=== PATIENT | female | born 1985 | race Caucasian/White ===

== ENCOUNTER 2019-12-14 08:34 | Emergency (ER) | payer MEDICAID ==
[~2019-12-14] VITALS: Ht 160 cm; Wt 68.0 kg
--- NOTE | 2019-12-14 08:38 | NUR ---
Patient ambulated to bed 11. RN evaluating patient at bedside.
[2019-12-14 08:41] VITALS: BP 119/70
--- NOTE | 2019-12-14 08:46 | NUR ---
34/F c/o sore throat x 1 day. reports no meds taken at home. VSS. AAOx 4. NKA. PmHx: denies Rx: denies
--- NOTE | 2019-12-14 08:54 | NUR ---
Dr. Lindquist is evaluating the patient at bedside.
== END 2019-12-14 09:08 | disposition home or self-care (01) ==
LOC: MED 08:34
DX: R05 Cough (principal)
CPT/HCPCS: 99282

== ENCOUNTER 2020-06-19 09:47 | Emergency (ER) | payer MEDICAID, OTHER ==
[~2020-06-19] VITALS: Ht 162.6 cm; Wt 73.5 kg
[2020-06-19 09:50] VITALS: BP 144/48
--- NOTE | 2020-06-19 09:55 | NUR ---
PT AMBULATED TO ER BED 04
--- NOTE | 2020-06-19 10:05 | NUR ---
35 YEAR OLD MALE COMPLAINS OF LEFT SHOULDER BLADE PAIN X 3 DAYS. PT DENIES ANY TRAUMA OR LIFTING ANYTHING HEAVY. PT AOX4, BREATHING EVEN AND UNLABORED, SKIN WARM AND DRY. BED IN LOWEST POSITION, LOCKED, BED RAIL UPX1. PMH - DENIES ALLERGIES - NKA
--- NOTE | 2020-06-19 10:35 | NUR ---
XRAY AT BEDSIDE
[2020-06-19] MEDS ORDERED: KETOROLAC 60 MG/2 ML VIAL IM ONE (11:05)
--- NOTE | 2020-06-19 11:30 | NUR ---
Patient discharged with v/s stable. Written and verbal after care instructions given and explained. Patient alert, oriented and verbalized understanding of instructions. Ambulatory with steady gait. All questions addressed prior to discharge. ID band removed. Patient advised to follow up with PMD. Rx of tramadol, motrin, and robaxin given. Patient educated on indication of medication including possible reaction and side effects. Opportunity to ask questions provided and answered.
[2020-06-19 11:34] VITALS: BP 104/67
== END 2020-06-19 11:34 | disposition home or self-care (01) ==
LOC: MED 09:47
DX: S46.812A Strain of other muscles, fascia and tendons at shoulder and upper arm level, left arm, initial encounter (principal); M54.6 Pain in thoracic spine; X58.XXXA Exposure to other specified factors, initial encounter; Y93.89 Activity, other specified; Y92.89 Other specified places as the place of occurrence of the external cause; Y99.8 Other external cause status
CPT/HCPCS: 71045; 81025; 93005; 96372; 99283; J1885; Q0092

== ENCOUNTER 2024-01-06 19:52 | Emergency (ER) | payer OTHER ==
[~2024-01-06] VITALS: Ht 152.4 cm; Wt 72.6 kg
[2024-01-06 20:03] VITALS: BP 115/70; PULSE 65; RESP 15; TEMP 97.7; O2SAT 99
[2024-01-06 21:23] LABS: APPEARANCE,URINE CLEAR (CLEAR); BILIRUBIN,URINE NEGATIVE (NEGATIVE); BLOOD, URINE 2+ (NEGATIVE); COLOR,URINE YELLOW (YELLOW); LEUKOCYTE ESTERASE ,URINE TRACE (NEGATIVE); NITRITE, URINE NEGATIVE (NEGATIVE); PH,URINE 6.5 (5.0-9.0); PROTEIN,URINE NEGATIVE (NEGATIVE); UGLUCOSE NEGATIVE (NEGATIVE); UROBILINOGEN,URINE 0.2 EU/dL (0.2 - 1)
[2024-01-06 21:31] LABS: BACTERIA,URINE 10-30 (MOD) /HPF (None Seen); SQUAMOUS EPITHELIAL CELL,UR 0-3 (FEW) /LPF (0-3 (FEW))
[2024-01-06] MEDS ORDERED: PHEN-1877 PO (23:47)
[2024-01-06] MEDS ORDERED: NAPR-1704 PO (23:47)
[2024-01-06] MEDS ORDERED: NITR100C7 PO (23:47)
[2024-01-06 23:58] VITALS: BP 115/70; PULSE 65; RESP 15; TEMP 97.7; O2SAT 99
== END 2024-01-06 23:55 | disposition home or self-care (01) ==
LOC: MED 19:52
DX: N39.0 Urinary tract infection, site not specified (principal); Z79.899 Other long term (current) drug therapy
CPT/HCPCS: 81001; 81025; 87086; 99283